=== PATIENT | male | born 1990 | race Caucasian/White ===

== ENCOUNTER 2022-11-16 12:59 | Day surgery (SDC) | payer OTHER, SELFPAY ==
--- NOTE | 2022-11-16 | PATH_ITS ---
[facility] Accession Number: [id number] No. of containers..03 Tissue . 01 Material submitted: . PART A: duodenum - DUODENUM BIOPSY PART B: gastrointestinal site - ANTRUM BIOPSY PART C: colon - TRANSVERSE COLON POLYP . 01 Diagnosis: A. Duodenum, Biopsy: Small bowel mucosa with no diagnostic abnormality. Negative for active inflammation, features of sprue, dysplasia, or malignancy. . B. Antrum, Biopsy: Gastric antral and body mucosa with mild chronic inflammation. Negative for Helicobacter organisms by immunohistochemistry. Negative for intestinal metaplasia. Negative for dysplasia or malignancy. . C. Transverse Colon Polyp: Inflammatory polyp. [facility] 11/19/2022 1610 Local . 01 Electronically signed: . Shaun Low MD, PhD, Pathologist NPI- [id number] . 01 Gross description: . Part A: DUODENUM BIOPSY: Received in formalin are 2 fragment(s) of mcdowell, soft tissue measuring 0.3 x 0.2 x 0.2 cm to 0.4 x 0.4 x 0.3 cm submitted entirely in 1 cassette(s) Part B: ANTRUM BIOPSY: Received in formalin are 2 fragment(s) of mcdowell, soft tissue measuring 0.1 x 0.1 x 0.1 cm to 0.3 x 0.2 x 0.2 cm submitted entirely in 1 cassette(s) Part C: TRANSVERSE COLON POLYP: Received in formalin is 1 fragment(s) of mcdowell, soft tissue measuring 0.3 x 0.3 x 0.2 cm submitted entirely in 1 cassette(s) /STEVE 11/17/2022 1849 Local . 01 Microscopic: . B. An immunohistochemical stain was performed to evaluate for Helicobacter organisms and is negative. The control stain showed appropriate reactivity. . * This test was developed and its performance characteristics determined by [employer]. It has not been cleared or approved by the U.[place]. Food and Drug Administration. The FDA has determined that such clearance or approval is not necessary. This test is used for clinical purposes. It should not be regarded as investigational or for research. . 01 Pathologist provided ICD-10: K29.70, K51.40 . 01 CPT . 931088, 996141, 266150, [id number] Specimen Comment: A courtesy copy of this report has been sent to [phone] Performed at: 01 [facility] [address] [place] [address] [id number] MD Tres Oliva MD Phone: [phone]
[2022-11-16 13:20] VITALS: BMI 28.5
[2022-11-16 13:34] VITALS: BP 118/81; PULSE 66; RESP 15; TEMP 36.4; O2SAT 98
[2022-11-16] MEDS: LACTATED RINGERS 1,000 ML 100 ML IV (13:36)
--- NOTE | 2022-11-16 14:06 | P.HP_ITS ---
History of Present Illness History of Present Illness Date Patient Seen: 11/16/22 Time Patient Seen: 14:06 Chief complaint: EGD/Colonoscopy Narrative: I reviewed my note no significant changes. [facility] Social History household members: spouse and family alcohol intake: former Meds Home Medications and Allergies Home Medications Medication Instructions Recorded Confirmed Type hydroxyzine HCl 25 mg tablet 25 mg PO TID PRN Panic Attack(S) 11/16/22 11/16/22 History omeprazole 20 mg capsule,delayed 20 mg PO DAILY PRN Heartburn 11/16/22 11/16/22 History release Allergies Allergy/AdvReac Type Severity Reaction Status Date / Time No Known Drug Allergies Allergy Verified 11/16/22 13:35 Review of Systems Review of Systems ROS: Yes All systems reviewed with the patient and are negative except as otherwise documented Exam Vital Signs (past 8 hours): - 11/16/22 13:34 Temperature 97.5 F L Pulse Rate 66 Respiratory Rate 15 Blood Pressure 118/81 Pulse Oximetry 98 Oxygen Delivery Method Room Air Oxygen Delivery Method Room Air Const General: cooperative HENMT Head: normal to inspection Eyes General: appearance normal, both eyes and all related structures Neck Neck: normal visual inspection Chest Chest: normal inspection of the chest Resp Effort & Inspection: normal respiratory effort Cardio Rate: regular rate GI Inspection: normal to inspection Skin General: no rashes or lesions noted Neuro General: patient alert and patient awake Extrem General: normal to inspection and no pedal edema Psych Appearance: grossly normal Assessment & Plan Assessment & Plan narrative: 32-year-old male with bloating GERD change in bowel habits rectal pain. EGD and colon is pursued today.
--- NOTE | 2022-11-16 14:08 | PM.PREOP ---
Pre-operative Note Interval Note History & Physical reviewed/Exam performed by Physician: Yes Changes to H&P: No ASA Class (for procedural sedation): II
[2022-11-16 15:11] VITALS: BP 103/58; PULSE 58; RESP 14; TEMP 36.3; O2SAT 95
--- NOTE | 2022-11-16 15:11 | PM.OP.EC ---
Operative Date/Time/Diagnoses Date of procedure: 11/16/22 Time of procedure: 15:12 Pre-op diagnosis: Bloating altered bowel habit GERD rectal pain Post-op diagnosis: same Procedure & Clinicians Study performed: EGD with biopsies and colonoscopy with cold snare polypectomy Same procedure as scheduled: Yes Indications: Bloating altered bowel habit GERD rectal pain Surgeon: Ethan Van Procedure Notes SCOAP/Timeout: Done Procedure in detail: After the risks and benefits were explained, written and verbal informed consent was obtained. The patient was brought into the procedure room and placed into the left lateral decubitus position. Please see anesthesia notes for sedation details. The scope was introduced into the mouth through the bite block and advanced under direct visualization to the 2nd portion of the duodenum. The scope was slowly withdrawn carefully examining the mucosa for any defects or lesions. Retroflexed views were accomplished in the stomach. The stomach was decompressed, the scope was then removed from the patient who tolerated the procedure well. The patient was then turned around. Digital rectal examination was accomplished. The scope was introduced into the rectum and advanced to the cecum as identified by the appendiceal orifice and ileocecal valve. The scope was slowly withdrawn to carefully examine the mucosa for any defects or lesions. Multiple direct views were made through the dentate line for exclusion of pathology. The colon was decompressed. The scope was removed from the patient who tolerated the procedure well. Adult colonoscope Bowel prep adequate Scope withdrawal time: 7 minutes Sedation minutes: 26 Complications: none Impression: 1. Duodenum: This was visually normal from the bulb through to the 2nd portion. Random D2 biopsies were taken for exclusion of sprue in light of his bloating symptoms. 2. Stomach: The patient had some scattered erosive features in the antrum and a slightly atrophic appearing mucosa diffusely. Biopsies were taken from the antral mucosa for histopathologic analysis and exclusion of H pylori. Retroflexed views of the LES were unremarkable. 3. Esophagus: The squamocolumnar junction correlated with the top of the gastric folds. GEJ was at about 40 cm from the incisors. No acute erosive changes no strictures no mass lesions. The esophagus was without any overt pathology. 4. Colon: No proctitis identified. No colitis throughout. In the transverse colon there was a diminutive 4 mm polyp removed with cold snare. In the rectum I did not appreciate any evidence of proctitis. I did not see any evidence of a fissure. Grade 1 internal hemorrhoids were noted with hypertrophied anal papillae. Endoscopic diagnosis 1. Erosive gastropathy 2. Otherwise visually unremarkable EGD 3. Grade 1 hemorrhoids with hypertrophied anal papillae 4. Diminutive polyp Post-procedure Plan for aftercare: 1. Await histopathology. 2. If the polyp demonstrates adenomatous features, repeat colonoscopy will be suggested for 5-7 years time. 3. Titrate xhgu-fua-rhsutst fiber (Citrucel) to achieve the desired stool consistency and frequency. 4. Follow up GI clinic in the next 6-8 weeks. Disposition: PACU
[2022-11-16 15:17] VITALS: BP 99/53; PULSE 54; RESP 14; O2SAT 95
[2022-11-16 15:22] VITALS: BP 111/59; PULSE 55; RESP 13; O2SAT 100
[2022-11-16 15:26] VITALS: BP 111/64; PULSE 52; RESP 8; TEMP 36.9; O2SAT 100
[2022-11-16 15:33] VITALS: BP 124/70; PULSE 49; RESP 14; TEMP 37.4; O2SAT 100
== END 2022-11-16 15:50 | disposition home or self-care (01) ==
PROVIDERS: PCP Internal Medicine; Referring Provider Internal Medicine Gastroenterology; Visit Provider Internal Medicine Gastroenterology
PROC: 0DJ08ZZ Inspection of Upper Intestinal Tract, Via Natural or Artificial Opening Endoscopic (ICD-10-PCS; CPT 43235; principal; 2022-11-16 14:00)
PROC: 0DJD8ZZ Inspection of Lower Intestinal Tract, Via Natural or Artificial Opening Endoscopic (ICD-10-PCS; CPT 45378; 2022-11-16 14:00)
DX: K62.89 Other specified diseases of anus and rectum (principal); K21.9 Gastro-esophageal reflux disease without esophagitis; R19.4 Change in bowel habit; R14.0 Abdominal distension (gaseous); K64.0 First degree hemorrhoids; K64.4 Residual hemorrhoidal skin tags; K29.50 Unspecified chronic gastritis without bleeding
CPT/HCPCS: 45385; 43239; J2704; J3010